=== PATIENT | male | born 1990 | race Caucasian/White ===

== ENCOUNTER 2021-12-20 00:59 | Emergency (ER) | payer SELFPAY ==
[~2021-12-20] VITALS: Ht 182.9 cm; Wt 122.5 kg
[2021-12-20 01:03] VITALS: BP 142/94
--- NOTE | 2021-12-20 01:10 | NUR ---
Patient states " I did not want to wait, I will go to another hospital that have Ortho specialist."
--- NOTE | 2021-12-20 01:12 | NUR ---
PATIENT LEFT WITHOUT BEING SEEN BY DR. Menendez. NO FURTHER CARE PROVIDED FOR PATIENT.
== END 2021-12-20 01:12 | disposition left against medical advice (07) ==
LOC: MED 00:59
DX: M79.631 Pain in right forearm (principal); Z53.21 Procedure and treatment not carried out due to patient leaving prior to being seen by health care provider; W19.XXXA Unspecified fall, initial encounter; Y93.89 Activity, other specified; Y92.89 Other specified places as the place of occurrence of the external cause; Y99.8 Other external cause status